=== PATIENT | female | born 1945 | race Caucasian/White ===

== ENCOUNTER → 2022-08-02 | Outpatient (CLI) | payer MEDICARE, OTHER ==
[2022-08-02 10:47] LABS: African American GFR (CKD) >90 (>60 ml/min/1.73 sqM); Blood Urea Nitrogen 17 mg/dL (7-17); Non-African American GFR(CKD) 78 (>60 ml/min/1.73 sqM)
--- NOTE | 2022-08-02 13:26 | CT ---
EXAMINATION TYPE: CT angio neck DATE OF EXAM: 08/02/2022 HISTORY: Occlusion of carotid artery COMPARISON: None CT DLP: 287.32 mGycm. Automated Exposure Control for Dose Reduction was Utilized. TECHNIQUE: CTA scan of the head and neck is performed with IV Contrast, patient injected with 75 mL of Isovue 370, axial images are obtained, coronal and sagittal reformatted images are reviewed. 3D re constructed images are created on an independent workstation and reviewed. FINDINGS: Right carotid artery: There is severe atherosclerotic calcified and soft plaque involving the right c arotid bifurcation. There is a critical stenosis involving the proximal right ICA measuring greater t rodriguez 90%. Report was called to the referring clinician 1:18 PM 08/02/2022. The remaining portion of the right ICA and common carotid artery are patent with mild atherosclerotic disease of the distal commo n carotid artery. Left carotid artery: There is mild atherosclerotic plaque in the left common and internal carotid art michaelle with no significant hemodynamic stenosis. Carotid bifurcation widely patent. Atherosclerotic plaque of the aortic arch. There is mild atherosclerotic changes involving the proxim al right subclavian artery. Left vertebral artery appears dominant. Hypertrophic and degenerative changes of the spine. There is a bilateral thyroid nodules greater on t he right. Largest measures 2.4 cm. Emphysematous changes involving the lung apices with apical pleura l based thickening and interlobular septal thickening which can be associated with chronic interstiti al lung disease. IMPRESSION: 1. Findings are compatible with critical stenosis proximal right ICA at the level the carotid bifurca tion. 2. No significant stenosis of the left carotid bifurcation. 3. Multinodular thyroid. NASCET criteria was used in interpretation of this exam?
== END | disposition home or self-care (01) ==
LOC: RADCTMAIN 09:57
PROVIDERS: ATTEND Surgery Vascular Surgery
DX: I65.23 Occlusion and stenosis of bilateral carotid arteries (principal); E04.2 Nontoxic multinodular goiter
CPT/HCPCS: 82565; 84520; 70498; 36415; Q9967